=== PATIENT | female | born 1960 | race Hispanic/Latino ===

== ENCOUNTER 2017-10-23 21:39 | Emergency (ER) | payer MEDICARE ==
[~2017-10-23 21:39] MED LIST: DIPH25TA22 PO
== END 2017-10-23 23:15 | disposition home or self-care (01) ==
LOC: EDH 21:39
DX: S99.821A Other specified injuries of right foot, initial encounter (principal); Z53.21 Procedure and treatment not carried out due to patient leaving prior to being seen by health care provider; Z90.49 Acquired absence of other specified parts of digestive tract; Z88.0 Allergy status to penicillin; W18.39XA Other fall on same level, initial encounter; Y93.89 Activity, other specified; Y92.098 Other place in other non-institutional residence as the place of occurrence of the external cause; Y99.8 Other external cause status
CPT/HCPCS: 99281

== ENCOUNTER 2018-08-24 16:05 | Emergency (ER) | payer MEDICARE ==
[2018-08-24] MEDS ORDERED: KETOROLAC TROMETHAMINE 30MG/ML ONE (17:48)
[2018-08-24] MEDS ORDERED: HYDROCODONE/ACETAMINOPHEN 5/325 MG TAB ONE (17:48)
== END 2018-08-24 18:15 | disposition home or self-care (01) ==
LOC: EDH 16:05
DX: S92.351A Displaced fracture of fifth metatarsal bone, right foot, initial encounter for closed fracture (principal); Z88.0 Allergy status to penicillin; Z90.49 Acquired absence of other specified parts of digestive tract; Z72.0 Tobacco use; X50.0XXA Overexertion from strenuous movement or load, initial encounter; Y93.89 Activity, other specified; Y92.098 Other place in other non-institutional residence as the place of occurrence of the external cause; Y99.8 Other external cause status
CPT/HCPCS: 73610; 73630; 96372; 99283; J1885

== ENCOUNTER 2019-03-11 14:54 | Emergency (ER) | payer MEDICARE ==
[2019-03-11 15:30] LABS: APPEARANCE,URINE Clear (CLEAR); BILIRUBIN,URINE Negative (NEGATIVE); COLOR,URINE Yellow (YELLOW); GLUCOSE, URINE (UA) Negative (NEGATIVE); KETONES,URINE Negative (NEGATIVE); LEUKOCYTE ESTERASE ,URINE Small (NEGATIVE); NITRATE,URINE Negative (NEGATIVE); OCCULT BLOOD,URINE Negative (NEGATIVE); PH,URINE 5.5 (5.0-8.0); PROTEIN,URINE Negative (NEGATIVE); UROBILINOGEN,URINE 0.2 mg/dL (0.2-1.0)
[2019-03-11 15:38] LABS: BACTERIA,URINE Moderate /HPF (None Seen); MUCUS,URINE None Seen LPF (None Seen)
[2019-03-11] MEDS ORDERED: KETOROLAC TROMETHAMINE 60 MG/2 ML VIAL ONE (16:21)
[2019-03-11] MEDS ORDERED: LIDOCAINE 5% TOPICAL PATCH TP ONE (16:21)
== END 2019-03-11 16:51 | disposition home or self-care (01) ==
LOC: EDH 14:54
DX: M54.5 Low back pain (principal); N39.0 Urinary tract infection, site not specified; Z88.0 Allergy status to penicillin
CPT/HCPCS: 81001; 96372; 99284; J1885

== ENCOUNTER 2021-01-06 03:07 | Emergency (ER) | payer OTHER, MEDICARE ==
[~2021-01-06] VITALS: Ht 172.7 cm; Wt 98.4 kg
[2021-01-06] MEDS ORDERED: NACL 0.9% 1000ML 1,000 ML IV ONE (03:30)
[2021-01-06] MEDS ORDERED: KETOROLAC 15MG/ML VIAL (15MG/ML) IV ONE (03:30)
[2021-01-06 03:36] VITALS: BP 94/50
[2021-01-06 03:38] LABS: HEMATOCRIT 34.5 % (36-48); MEAN CORPUSCULAR HEMOGLOBIN 32.4 pg (27.0-33.0); MEAN CORPUSCULAR HGB CONC 32.8 g/dL (32.0-36.0); MEAN CORPUSCULAR VOLUME 98.9 fL (79-99); PLATELET COUNT (AUTO) 260 K/uL (130-400); RED BLOOD CELL COUNT(AUTO) 3.49 MIL/uL (4.00-5.50); RED CELL DISTRIBUTION WIDTH 13.2 % (11.0-15.5); WHITE BLOOD COUNT (AUTO) 8.3 K/uL (4.8-10.8)
[2021-01-06 03:47] LABS: CREATININE 0.6 mg/dL (0.5-1.5); POTASSIUM 3.5 mmol/L (3.5-5.1)
[2021-01-06 03:52] LABS: BILIRUBIN,TOTAL 0.8 mg/dL (0.2-1.0); TOTAL PROTEIN, SERUM 6.8 g/dL (6.0-8.3)
[2021-01-06] MEDS ORDERED: KETOROLAC 15MG/ML VIAL (15MG/ML) ONE (03:57)
[2021-01-06 05:05] LABS: BAND NEUTROPHILS % (MANUAL) 4 % (0-2); BASOPHILS % (MANUAL) 1 % (0-2); EOSINOPHILS % (MANUAL) 4 % (1-6); LYMPHOCYTES % (MANUAL) 22 % (22-44); MAN.DIFF COMMENT-IMPRESSION MANUAL DIFFERENTIAL; MONOCYTES % (MANUAL) 7 % (2-9); PLATELET MORPHOLOGY COMMENT ADEQUATE; REACTIVE LYMPHOCYTES 3 % (0-0); SEGMENTED NEUTROPHILS % 59 % (40-70)
== END 2021-01-06 05:22 | disposition home or self-care (01) ==
LOC: EDH 04:38
DX: G89.18 Other acute postprocedural pain (principal); M79.661 Pain in right lower leg; F10.229 Alcohol dependence with intoxication, unspecified; F32.9 Major depressive disorder, single episode, unspecified; Z88.0 Allergy status to penicillin; Z79.899 Other long term (current) drug therapy; Y90.6 Blood alcohol level of 120-199 mg/100 ml
CPT/HCPCS: 36415; 73590; 80053; 85025; 96374; 99284; J1885

== ENCOUNTER 2021-01-24 21:10 | Emergency (ER) | payer OTHER, MEDICARE ==
[~2021-01-24] VITALS: Ht 172.7 cm; Wt 101.2 kg
[2021-01-24 21:13] VITALS: BP 143/68
== END 2021-01-24 22:05 | disposition home or self-care (01) ==
LOC: EDH 21:15
DX: R23.8 Other skin changes (principal); F32.9 Major depressive disorder, single episode, unspecified; F10.20 Alcohol dependence, uncomplicated; Z88.0 Allergy status to penicillin; Z79.899 Other long term (current) drug therapy
CPT/HCPCS: 87076

== ENCOUNTER → 2021-02-02 | Outpatient (CLI) | payer OTHER ==
[~2021-02-02] MED LIST changes: +GLYCOPYRROLATE 1 MG/5 ML SYRINGE ONE; +MIDAZOLAM HCL 1 MG/ML 2ML VIAL ONE; +PROPOFOL 10 MG/ML 20ML VIAL IV ONE
== END | disposition home or self-care (01) ==
LOC: RAH 09:20
PROVIDERS: ATTEND Internal Medicine
DX: K76.0 Fatty (change of) liver, not elsewhere classified (principal); Z90.49 Acquired absence of other specified parts of digestive tract
CPT/HCPCS: 76700; J2250; J2704; J3490

== ENCOUNTER 2023-09-19 03:22 | Emergency (ER) | payer OTHER ==
[~2023-09-19] VITALS: Ht 172.7 cm; Wt 111.1 kg
[~2023-09-19 03:22] MED LIST changes: -GLYCOPYRROLATE 1 MG/5 ML SYRINGE ONE; -MIDAZOLAM HCL 1 MG/ML 2ML VIAL ONE; -PROPOFOL 10 MG/ML 20ML VIAL IV ONE
[2023-09-19] MEDS ORDERED: KETOROLAC 15MG/ML VIAL (15MG/ML) IV ONE (12:00)
[2023-09-19] MEDS ORDERED: IBUP-2070 PO (12:15)
[2023-09-19 12:30] VITALS: BP 121/70; PULSE 77; RESP 16; O2SAT 99
== END 2023-09-19 12:38 | disposition home or self-care (01) ==
LOC: EDH 03:22
DX: S39.012A Strain of muscle, fascia and tendon of lower back, initial encounter (principal); M62.830 Muscle spasm of back; Z88.0 Allergy status to penicillin; Z90.49 Acquired absence of other specified parts of digestive tract; Z98.51 Tubal ligation status; X58.XXXA Exposure to other specified factors, initial encounter; Y93.89 Activity, other specified; Y92.89 Other specified places as the place of occurrence of the external cause; Y99.8 Other external cause status
CPT/HCPCS: 99283; 96374; J1885; 99282